=== PATIENT | male | born 1955 | race Caucasian/White ===

== ENCOUNTER → 2024-08-17 13:24 | Outpatient (REF) | payer MEDICARE, SELFPAY ==
[2024-08-17 15:08] LABS: Blood Urea Nitrogen 37 mg/dl (9-20); Calcium 10.5 mg/dl (8.4-10.2); Carbon Dioxide 24 mmol/L (22-30); Chloride 99 mmol/L (98-107); Glucose 102 mg/dl (70-99); Potassium 4.6 mmol/L (3.5-5.1); Sodium 136 mmol/L (135-145)
== END ==
LOC: REG 13:24
PROVIDERS: ATTENDING PHYSICIAN Surgery Vascular Surgery; FAMILY PHYSICIAN Family Medicine
DX: I71.21 Aneurysm of the ascending aorta, without rupture (principal)
CPT/HCPCS: 36415; 80048

== ENCOUNTER → 2024-08-29 12:30 | Outpatient (REF) | payer MEDICARE, SELFPAY | LOC: RAD 12:30 | PROVIDERS: ATTENDING PHYSICIAN Surgery Vascular Surgery; FAMILY PHYSICIAN Family Medicine | DX: I71.21 Aneurysm of the ascending aorta, without rupture (principal) | CPT/HCPCS: 71275; 74174; Q9967 ==